=== PATIENT | female | born 1980 | race Hispanic/Latino ===

== ENCOUNTER 2024-03-09 07:15 | Outpatient (CLI) | payer BC | END 2024-03-09 07:16 | disposition home or self-care (01) | LOC: CSHCT 07:15 | PROVIDERS: ATTEND Family Medicine | DX: M54.81 Occipital neuralgia (principal); R51.9 Headache, unspecified | CPT/HCPCS: 70450 ==

== ENCOUNTER 2024-05-05 12:51 | Outpatient (CLI) | payer BC ==
[~2024-05-05 12:51] MED LIST: Magnevist 469MG/ML 20 ML VIAL ONE
== END 2024-05-05 12:52 | disposition home or self-care (01) ==
LOC: CSHMRI 12:51
PROVIDERS: ATTEND Neurological Surgery
DX: D49.6 Neoplasm of unspecified behavior of brain (principal); G93.0 Cerebral cysts
CPT/HCPCS: 70553; 76376